=== PATIENT | female | born 1960 | race Hispanic/Latino ===

== ENCOUNTER 2020-05-20 23:37 | Emergency (ER) | payer BC ==
--- OUTSIDE RECORDS SUMMARY | 2020-05-20 23:41 | XMS REPORT | Continuity of Care Document ---
:1960 Author Organization [facility] t Address [address] [place] [address] Care Team Providers Name Role Phone Moreno LOPEZ, H Attending Clinician Only, Test Attending Clinician Unavailable Doctor Unassigned, Name Attending Clinician Unavailable Problems This patient has no known problems. Allergies, Adverse Reactions, Alerts This patient has no known allergies or adverse reactions. Medications This patient has no known medications. Procedures This patient has no known procedures. Encounters Start End Encounter Admission Attending Care Care Encounter Source Date/Time Date/Time Type Type Clinicians Facility Department ID 2020-05-03 2020-05-03 Letter AMBERLY Mayer [id number] 00:00:00 00:00:00 (Out) Samy AGUIAR [id number] 2020-05-01 2020-05-01 Laboratory Only, [facility] [id number] 09:17:47 09:32:47 Only Test [place] [id number] [place] [id number] [place] [id number] 2020-05-01 2020-05-01 Orders Doctor GAMING [id number] 00:00:00 00:00:00 Only UnassSTEFANIA garcia [id number] [place] [id number] Results This patient has no known results.
[2020-05-21 03:59] LABS: Protime INR 0.97
[2020-05-21 04:01] LABS: Absolute Lymphocytes (CBC) 1.8 K/uL (0.7-4.9); Basophils % 0.4 % (0-1.3); Hematocrit 40.7 % (36.0-45.0); Lymphocytes % 21.2 % (15.3-44.8); RBC Red Blood Cell Count 4.56 M/uL (3.86-4.86)
[2020-05-21 04:24] LABS: ALT/SGPT 50 U/L (12-78); AST/SGOT 21 U/L (15-37); Albumin 3.9 g/dL (3.4-5.0); Alkaline Phosphatase 106 U/L (45-117); BUN Blood Urea Nitrogen 19 mg/dL (7-18); Bicarbonate 27 mmol/L (21-32); Bilirubin Direct 0.1 mg/dL (0-0.2); Bilirubin Total 0.5 mg/dL (0.2-1.0); Glucose Level 90 mg/dL (74-106); Magnesium 2.3 mg/dL (1.8-2.4); NT PRO-BNP 69 pg/mL (<125); Potassium 4.1 mmol/L (3.5-5.1); Protein, Total 7.5 g/dL (6.4-8.2); Sodium Level 140 mmol/L (136-145); Troponin (Emerg Dept Use Only) < 0.02 ng/mL (0.0-0.045)
--- NOTE | 2020-05-21 05:43 | RAD REPORT ---
EXAM DESCRIPTION: Ruddy Single View05/21/2020 4:21 am CLINICAL HISTORY: Hypertension/dizziness COMPARISON: none FINDINGS: The left base is hazy. The remainder lungs appear clear. The heart is normal size IMPRESSION: Left base is hazy. This may be secondary to overlying soft tissue or infiltrate. PA and lateral chest series may be helpful for further evaluation
--- NOTE | 2020-05-21 08:08 | EKG ---
Test Date: 2020-05-21 Test Time: 04:13:57 Timber Spotter: LAURA MEASUREMENT RESULTS: Intervals: Rate: 64 MN: 178 QRSD: 76 QT: 392 QTc: 404 [place]: P: 76 MN: 178 QRS: 61 T: 30 INTERPRETIVE STATEMENTS: Normal sinus rhythm Normal ECG No previous ECG available for comparison Electronically Signed On 05-21-20 08:08:02 CDT by Eduardo Carlson
--- NOTE | 2020-05-21 09:53 | RAD REPORT ---
EXAM DESCRIPTION: MRI - Brain W/Wo Cont - 05/21/2020 9:12 am CLINICAL HISTORY: Ataxia COMPARISON: May 21, [address] TECHNIQUE: Axial, sagittal, and coronal magnetic images of the brain were obtained. 18 cc MultiHance administered intravenously FINDINGS: No abnormal signal within the brain The ventricles are normal in caliber. Diffusion-weighted/ ADC mapping sequences do not demonstrate evidence of an acute infarction. No abnormal enhancement within the brain is seen. An extra-axial fluid collection is not noted. Fluid within the sinuses/mastoids is not seen IMPRESSION: No acute abnormality displayed
--- NOTE | 2020-05-21 10:20 | ER ---
Nurse's Notes [facility] Name: Nicolle Venegas Age: 59 yrs Sex: Female : 1960 Arrival Date: 05/20/2020 Time: 23:44 Bed 2 Private MD: Diagnosis: Headache;Dizziness and giddiness Presentation: 05/20 23:50 Chief complaint: sister states pt c/o headache and sore throat starting today. bb Coronavirus screen: headache, sore throat. Ebola Screen: No symptoms or risks identified at this time. Initial Sepsis Screen: Does the patient meet any 2 criteria? No. Patient's initial sepsis screen is negative. Does the patient have a suspected source of infection? No. Patient's initial sepsis screen is negative. Risk Assessment: Do you want to hurt yourself or someone else? Patient reports no desire to harm self or others. Onset of symptoms was May 20, 2020. 23:50 Method Of Arrival: Wheelchair bb 23:50 Acuity: THUY 3 bb Triage Assessment: 23:54 Headache History: Other unable to determine. General: Appears in no apparent distress. bb uncomfortable, Behavior is calm, cooperative. Pain: Complains of pain in throat Pain currently is 8 out of 10 on a pain scale. Pain began 1 day ago. Also complains of no other associated symptoms. EENT: Reports pain in throat and headache. Neuro: Level of Consciousness is awake, alert, obeys commands, Oriented to person, place, time, situation. Cardiovascular: No deficits noted. Respiratory: Respiratory effort is even, unlabored, Respiratory pattern is regular. GI: No signs and/or symptoms were reported involving the gastrointestinal system. Derm: Skin is pink, warm \T\ dry. Musculoskeletal: Circulation, motion, and sensation intact. Historical: - Allergies: 23:54 No Known Allergies; bb - Home Meds: 23:54 Unable to obtain [Active]; bb - PMHx: 23:54 Hypertension; bb - Immunization history:: Adult Immunizations unknown. - Social history:: Smoking status: unknown. Screenin/06 01:10 Abuse screen: Denies threats or abuse. Nutritional screening: No deficits noted. jb4 Tuberculosis screening: No symptoms or risk factors identified. Fall Risk None identified. Assessment: 01:10 General: Appears in no apparent distress. comfortable, Behavior is calm, cooperative, jb4 appropriate for age. Pain: Complains of pain in headache Pain does not radiate. Neuro: Level of Consciousness is awake, alert, obeys commands, Oriented to person, place, time, situation, Comprehensive Advisor are equal bilaterally Full function Gait is unsteady, Speech is normal, Facial symmetry appears normal, Pupils are PERRLA, Reports headache weakness in right leg and left leg. Cardiovascular: Patient's skin is warm and dry. Respiratory: Airway is patent Respiratory effort is even, unlabored, Respiratory pattern is regular, symmetrical. GI: No signs and/or symptoms were reported involving the gastrointestinal system. : No signs and/or symptoms were reported regarding the genitourinary system. EENT: No signs and/or symptoms were reported regarding the EENT system. Derm: Skin is intact, Skin is pink, warm \T\ dry. Musculoskeletal: Circulation, motion, and sensation intact. Range of motion:. 02:00 Reassessment: Patient appears in no apparent distress at this time. Patient and/or jb4 family updated on plan of care and expected duration. Pain level reassessed. Patient is alert, oriented x 3, equal unlabored respirations, skin warm/dry/pink. 03:06 Reassessment: Patient appears in no apparent distress at this time. Patient and/or jb4 family updated on plan of care and expected duration. Pain level reassessed. Patient is alert, oriented x 3, equal unlabored respirations, skin warm/dry/pink. Pt assisted to the restroom and back to bed via wheel chair. 03:18 Reassessment: provider at the bedside. jb4 04:25 Reassessment: Patient appears in no apparent distress at this time. Patient and/or jb4 family updated on plan of care and expected duration. Pain level reassessed. Patient is alert, oriented x 3, equal unlabored respirations, skin warm/dry/pink. 05:49 Reassessment: Patient and/or family updated on plan of care and expected duration. Pain jb4 level reassessed. pt is resting in bed with eyes closed, respirations are even and unlabored. with no s/s of pain or distress noted. 06:34 Reassessment: Pt is resting in bed peacefully with eyes closed, respirations are even jb4 and unlabored with no s/s of pain or distress noted. 07:40 Reassessment: Patient appears in no apparent distress at this time. Patient and/or hb family updated on plan of care and expected duration. Pain level reassessed. Patient is alert, oriented x 3, equal unlabored respirations, skin warm/dry/pink. 08:32 Reassessment: Pt to MRI. hb 09:15 Reassessment: Pt returned from MRI. hb 10:05 Reassessment: Patient appears in no apparent distress at this time. Patient and/or hb family updated on plan of care and expected duration. Pain level reassessed. Patient is alert, oriented x 3, equal unlabored respirations, skin warm/dry/pink. Vital Signs: 05/20 23:50 BP 114 / 78; Pulse 57; Resp 16 S; Temp 97.6(O); Pulse Ox 97% on R/A; Weight 70.76 kg bb (R); Height 5 ft. 1 in. (154.94 cm) (R); Pain 8/10; 05/21 01:17 BP 109 / 71; Pulse 65; Resp 18; Pulse Ox 99% on R/A; mg2 02:00 BP 115 / 76; Pulse 57; Resp 16; Pulse Ox 96% on R/A; jb4 03:24 BP 121 / 88; Pulse 69; Resp 18; Pulse Ox 98% on R/A; mg2 04:24 BP 108 / 76; Pulse 63; Resp 16; Pulse Ox 95% on R/A; jb4 05:30 BP 99 / 67; Pulse 54; Resp 16; Pulse Ox 97% on R/A; jb4 06:30 BP 101 / 66; Pulse 77; Resp 17; Pulse Ox 100% on R/A; jb4 07:42 BP 104 / 68; Pulse 73; Resp 15; Pulse Ox 98% on R/A; hb 09:49 BP 107 / 76; Pulse 52; Resp 15; Pulse Ox 99% on R/A; hb 05/20 23:50 Body Mass Index 29.48 (70.76 kg, 154.94 cm) bb [place] Coma Score: 10:18 Eye Response: spontaneous(4). Verbal Response: oriented(5). Motor Response: obeys rn commands(6). Total: 15. ED Course: 05/20 23:44 Patient arrived in ED. cf2 23:53 Triage completed. bb 23:54 Arm band placed on Patient placed in waiting room, Patient notified of wait time. bb 05/21 01:01 Darek Abbott, RN is Primary Nurse. jb4 01:10 Patient has correct armband on for positive identification. Bed in low position. Call jb4 light in reach. Side rails up X 1. Pulse ox on. NIBP on. 03:31 Alexander Javed MD is Attending Physician. pkl 04:08 CT Head Brain wo Cont In Process Unspecified. EDMS 04:21 XRAY Chest (1 view) In Process Unspecified. EDMS 07:06 Primary Nurse role handed off by Darek Abbott, MACI bd 07:15 Yeni Boyd, MACI is Primary Nurse. hb 07:43 CBC with Diff Sent. sv 07:43 Basic Metabolic Panel Sent. sv 09:04 Brain W/Wo Cont In Process Unspecified. EDMS 10:33 No provider procedures requiring assistance completed. IV discontinued, intact, hb bleeding controlled, No redness/swelling at site. Administered Medications: 10:33 Drug: Meclizine 25 mg Route: PO; hb 10:33 Follow up: Response: No adverse reaction hb Outcome: 10:19 Discharge ordered by MD. rn 10:33 Discharged to home via wheelchair. hb 10:33 Condition: stable 10:33 Discharge instructions given to patient, Instructed on discharge instructions, follow up and referral plans. medication usage, Demonstrated understanding of instructions, follow-up care, medications, Prescriptions given X 2. 10:34 Patient left the ED. hb Signatures: Dispatcher [employer] EDDC Sheila He Elke Silveira RN RN Alexander Javed MD MD pkFaye Hoffman RN RN bb Nieto, Roman, MD MD rn Baxter, Heather, RN RN Darek Abbott RN RN [facility] Clark Johnston RN RN [facility] [place] Tijerina cf2 Corrections: (The following items were deleted from the chart) 02:42 01:10 Neuro: Level of Consciousness is awake, alert, obeys commands, Oriented to jb4 person, place, time, situation, Reports headache weakness in right leg and left leg jb4
--- NOTE | 2020-05-21 10:20 | EDPHYS ---
Physician Documentation [facility] Name: Nicolle Venegas Age: 59 yrs Sex: Female : 1960 Arrival Date: 05/20/2020 Time: 23:44 Bed 2 Private MD: ED Physician Alexander Javed HPI: 05/21 07:58 This 59 yrs old Female presents to ER via Wheelchair with complaints of pkl Headache, Sore Throat. 07:58 The patient complains of pain to the top of head and forehead. The patient describes pkl the headache as constant. Onset: The symptoms/episode began/occurred 3 week(s) ago. Associated signs and symptoms: Pertinent positives: unsteady gait. Historical: - Allergies: 05/20 23:54 No Known Allergies; bb - Home Meds: 23:54 Unable to obtain [Active]; bb - PMHx: 23:54 Hypertension; bb - Immunization history:: Adult Immunizations unknown. - Social history:: Smoking status: unknown. ROS: 05/21 07:58 Eyes: Negative for injury, pain, redness, and discharge, ENT: Negative for injury, pkl pain, and discharge, Neck: Negative for injury, pain, and swelling, Cardiovascular: Negative for chest pain, palpitations, and edema, Respiratory: Negative for shortness of breath, cough, wheezing, and pleuritic chest pain, Abdomen/GI: Negative for abdominal pain, nausea, vomiting, diarrhea, and constipation, Back: Negative for injury and pain, : Negative for injury, bleeding, discharge, and swelling, MS/Extremity: Negative for injury and deformity, Skin: Negative for injury, rash, and discoloration. Neuro: Positive for dizziness, gait disturbance, headache. Exam: 07:58 Head/Face: Normocephalic, atraumatic. Eyes: Pupils equal round and reactive to light, pkl extra-ocular motions intact. Lids and lashes normal. Conjunctiva and sclera are non-icteric and not injected. Cornea within normal limits. Periorbital areas with no swelling, redness, or edema. ENT: Nares patent. No nasal discharge, no septal abnormalities noted. Tympanic membranes are normal and external auditory canals are clear. Oropharynx with no redness, swelling, or masses, exudates, or evidence of obstruction, uvula midline. Mucous membranes moist. Neck: Trachea midline, no thyromegaly or masses palpated, and no cervical lymphadenopathy. Supple, full range of motion without nuchal rigidity, or vertebral point tenderness. No Meningismus. Chest/axilla: Normal chest wall appearance and motion. Nontender with no deformity. No lesions are appreciated. Cardiovascular: Regular rate and rhythm with a normal S1 and S2. No gallops, murmurs, or rubs. Normal PMI, no JVD. No pulse deficits. Respiratory: Lungs have equal breath sounds bilaterally, clear to auscultation and percussion. No rales, rhonchi or wheezes noted. No increased work of breathing, no retractions or nasal flaring. Abdomen/GI: Soft, non-tender, with normal bowel sounds. No distension or tympany. No guarding or rebound. No evidence of tenderness throughout. Back: No spinal tenderness. No costovertebral tenderness. Full range of motion. Skin: Warm, dry with normal turgor. Normal color with no rashes, no lesions, and no evidence of cellulitis. MS/ Extremity: Pulses equal, no cyanosis. Neurovascular intact. Full, normal range of motion. 07:58 Neuro: Orientation: is normal, Mentation: is normal, Cranial nerves: grossly normal, Motor: is normal, Gait: is unsteady. Vital Signs: 05/20 23:50 BP 114 / 78; Pulse 57; Resp 16 S; Temp 97.6(O); Pulse Ox 97% on R/A; Weight 70.76 kg bb (R); Height 5 ft. 1 in. (154.94 cm) (R); Pain 8/10; 05/21 01:17 BP 109 / 71; Pulse 65; Resp 18; Pulse Ox 99% on R/A; mg2 02:00 BP 115 / 76; Pulse 57; Resp 16; Pulse Ox 96% on R/A; jb4 03:24 BP 121 / 88; Pulse 69; Resp 18; Pulse Ox 98% on R/A; mg2 04:24 BP 108 / 76; Pulse 63; Resp 16; Pulse Ox 95% on R/A; jb4 05:30 BP 99 / 67; Pulse 54; Resp 16; Pulse Ox 97% on R/A; jb4 06:30 BP 101 / 66; Pulse 77; Resp 17; Pulse Ox 100% on R/A; jb4 07:42 BP 104 / 68; Pulse 73; Resp 15; Pulse Ox 98% on R/A; hb 09:49 BP 107 / 76; Pulse 52; Resp 15; Pulse Ox 99% on R/A; hb 04/05 23:50 Body Mass Index 29.48 (70.76 kg, 154.94 cm) bb [place] Coma Score: 10:18 Eye Response: spontaneous(4). Verbal Response: oriented(5). Motor Response: obeys rn commands(6). Total: 15. MDM: 03:31 Patient medically screened. pkl 08:46 ED course: Signed out to me by Dr. Javed pending MRI brain for headache and dizziness.. rn 10:18 Differential diagnosis: migraine, neoplasm, tension headache, vasomotor headache, rn vertigo, CVA, TIA. Data reviewed: vital signs, nurses notes, lab test result(s), EKG, radiologic studies, CT scan, MRI, and as a result, I will discharge patient. Counseling: I had a detailed discussion with the patient and/or guardian regarding: the historical points, exam findings, and any diagnostic results supporting the discharge/admit diagnosis, lab results, radiology results, the need for outpatient follow up, to return to the emergency department if symptoms worsen or persist or if there are any questions or concerns that arise at home. Response to treatment: the patient's symptoms have markedly improved after treatment, and as a result, I will discharge patient. Special discussion: I discussed with the patient/guardian in detail that at this point there is no indication for admission to the hospital. It is understood, however, that if the symptoms persist or worsen the patient needs to return immediately for re-evaluation. ED course: MRI without acute finding, xray shows possible haziness but patient without fever/cough/dyspnea. Will dc home with treatment for vertigo and abx given finding on cxr. . 05/21 03:33 Order name: Basic Metabolic Panel pkl 05/21 03:33 Order name: CBC with Diff pkl 05/21 03:33 Order name: LFT's; Complete Time: 08:08 pkl 05/21 03:33 Order name: Magnesium; Complete Time: 08:08 pkl 05/21 03:33 Order name: NT PRO-BNP; Complete Time: 08:08 pkl 05/21 03:33 Order name: PT-INR; Complete Time: 08:08 pkl 05/21 03:33 Order name: Troponin (emerg Dept Use Only); Complete Time: 08:08 pkl 05/21 03:33 Order name: XRAY Chest (1 view); Complete Time: 08:08 pkl 05/21 03:33 Order name: CT Head Brain wo Cont pkl 05/21 03:33 Order name: Basic Metabolic Panel; Complete Time: 08:08 EDMS 05/21 03:33 Order name: CBC with Automated Diff; Complete Time: 08:08 EDMS 05/21 09:04 Order name: Brain W/Wo Cont; Complete Time: 10:14 EDMS 05/21 03:33 Order name: EKG; Complete Time: 03:34 pkl 05/21 03:33 Order name: Cardiac monitoring; Complete Time: 04:03 pkl 05/21 03:33 Order name: EKG - Nurse/Tech; Complete Time: 04:09 pkl 05/21 03:33 Order name: IV Saline Lock; Complete Time: 03:33 pkl 05/21 03:33 Order name: Labs collected and sent; Complete Time: 04:03 pkl 05/21 03:33 Order name: O2 Per Protocol; Complete Time: 03:34 pkl 05/21 03:33 Order name: O2 Sat Monitoring; Complete Time: 03:34 pkl Administered Medications: 10:33 Drug: Meclizine 25 mg Route: PO; hb 10:33 Follow up: Response: No adverse reaction hb Disposition: 05/21/20 10:19 Discharged to Home. Impression: Headache, Dizziness and giddiness. - Condition is Stable. - Discharge Instructions: Dizziness, General Headache Without Cause. - Prescriptions for Meclizine 25 mg Oral Tablet - take 1 tablet by ORAL route every 8 hours As needed; 20 tablet. Zithromax Z- Brian 250 mg Oral Tablet - take 1 tablet by ORAL route as directed for 5 days Day 1 - take two (2) tablets one time. Day 2, 3, 4 , 5 take one (1) tablet once daily.; 6 tablet. - Medication Reconciliation Form, Thank You Letter, Antibiotic Education, Prescription Opioid Use form. - Follow up: Private Physician; When: As needed; Reason: Recheck today's complaints, Re-evaluation by your physician. - Problem is new. - Symptoms have improved. Signatures: Dispatcher [employer] EDOR Alexander Javed MD MD pkl Ballard, Brenda, RN RN Rogers Newberry MD MD rn Baxter, Heather, MACI RN hb Corrections: (The following items were deleted from the chart) 09:04 08:11 Brain With Cont+MRI.RAD.BRZ ordered. [facility] EDOR 10:34 10:19 05/21/2020 10:19 Discharged to Home. Impression: Headache; Dizziness and hb giddiness. Condition is Stable. Forms are Medication Reconciliation Form, Thank You Letter, Antibiotic Education, Prescription Opioid Use. Follow up: Private Physician; When: As needed; Reason: Recheck today's complaints, Re-evaluation by your physician. Problem is new. Symptoms have improved. rn
[2020-05-21] MEDS ORDERED: MECLIZINE HCL 12.5 MG TAB ONE (10:47)
[2020-05-21 10:50] VITALS: TEMP 97.6
[2020-05-21 11:01] VITALS: BP 107/76; O2SAT 99
--- NOTE | 2020-05-21 12:57 | RAD REPORT ---
EXAM DESCRIPTION: CT - Head Brain Wo Cont - 05/21/2020 6:28 am CLINICAL HISTORY: The patient is 59 years old and is Female; DIZZINESS TECHNIQUE: Axial computed tomography images of the head/brain without intravenous contrast. Sagitt al and coronal reformatted images were created and reviewed. This CT exam was performed using one o r more of the following dose reduction techniques: automated exposure control, adjustment of the mA and/or kV according to patient size, and/or use of iterative reconstruction technique. COMPARISON: No relevant prior studies available. FINDINGS: Brain: Unremarkable. No hemorrhage. No significant white matter disease. No edema. Ventricles: Unremarkable. No ventriculomegaly. Bones/joints: Unremarkable. No acute skull fracture. Soft tissues: Unremarkable. Sinuses: Unremarkable as visualized. No acute sinusitis. Mastoid air cells: No significant mastoid fluid. IMPRESSION: No acute intracranial findings. No hemorrhage. Electronically signed by: Elke Mancia MD 05/21/2020 4:22 AM CDT Due to temporary technical issues with the PACS/Fluency reporting system, reports are being signed by the in house radiologist without review as a courtesy to ensure prompt reporting. The interpreting r adiologist is fully responsible for the content of the report.
== END 2020-05-21 10:34 | disposition home or self-care (01) ==
LOC: ER 23:37
DX: R51.9 Headache, unspecified (principal); R42 Dizziness and giddiness; I10 Essential (primary) hypertension
CPT/HCPCS: 93005; 85025; 80048; 36415; 83735; 85610; 80076; 84484; 83880; 70450; 71045; 70553; A9577; 99284